=== PATIENT | male | born 1975 | race Caucasian/White ===

== ENCOUNTER 2018-04-30 07:54 | Emergency (ER) | payer OTHER ==
[2018-04-30 08:03] VITALS: BP 123/76; PULSE 91; TEMP 97.5; BMI 57.6
--- NOTE | 2018-04-30 08:20 | PDOC ---
History of Present Illness - General Chief Complaint: Pain Stated Complaint: GOUT RIGHT ELBOW Time Seen by Provider: 04/30/18 08:14 History Source: Patient Exam Limitations: No Limitations - History of Present Illness Initial Comments: CHIEF COMPLAINT: 42 y/o afebrile male with PMH gout c/o atraumatic right elbow pain that he believes is a gout attack. HISTORY OF PRESENT ILLNESS: The patient states that 2 days ago he had 2 glasses of wine. Yesterday he woke up with right elbow pain and he can't stand to even have a shirt sleeve on the elbow. He denies fall, trauma to elbow, fever, streaking, numbness/tingling of affected extremity. Vital signs on arrival are within normal limits REVIEW OF SYSTEMS: GENERAL/CONSTITUTIONAL: No fever/chills. No weakness. No weight change. MUSCULOSKELETAL: +right elbow pain. No neck or back pain. SKIN: No rash or easy bruising. NEUROLOGIC: No headache, vertigo, loss of consciousness, or loss of sensation. PHYSICAL EXAM: GENERAL: The patient is awake, alert, and fully oriented, in no acute distress. EXTREMITIES: Normal range of motion, no edema. Exquisite TTP of right elbow with light touch. No erythema or warmth to affected extremity. No deformities or streaking. NEUROLOGICAL: Normal speech, normal gait. CN II-XII grossly intact. SKIN: Warm, dry, normal turgor, no rashes or lesions noted. Past History - Past Medical History Home Medications: Ambulatory Orders Colchicine [Colcrys -] 0.6 mg PO BID #3 tablet 04/30/18 - Suicide/Smoking/Psychosocial Hx Smoking History: Former smoker Have you smoked in the past 12 months: No Information on smoking cessation initiated: No Hx Alcohol Use: No Drug/Substance Use Hx: No *Physical Exam - Vital Signs Last Vital Signs Temp Pulse Resp BP Pulse Ox 97.5 F L 91 H 20 123/76 99 04/30/18 07:57 04/30/18 07:57 04/30/18 07:57 04/30/18 07:57 04/30/18 07:57 Moderate Sedation - Procedure Monitoring Vital Signs: Procedure Monitoring Vital Signs Temperature 97.5 F L 04/30/18 07:57 Pulse Rate 91 H 04/30/18 07:57 Respiratory Rate 20 04/30/18 07:57 Blood Pressure 123/76 04/30/18 07:57 O2 Sat by Pulse Oximetry (%) 99 04/30/18 07:57 Medical Decision Making - Medical Decision Making A/P: 42 y/o male with gout attack to right elbow. Will send rx for colchicine. Instructed patient to return to the ER with any worsening or concerning symptoms. The patient verbalizes understanding of all instructions, has no further questions and is awaiting discharge. *DC/Admit/Observation/Transfer Diagnosis at time of Disposition: Gout attack Qualifiers: Gout site: elbow Gout etiology: unspecified cause Laterality: right Qualified Code(s): M10.9 - Gout, unspecified - Discharge Dispostion Disposition: HOME Condition at time of disposition: Good - Prescriptions Prescriptions: Colchicine [Colcrys -] 0.6 mg PO BID #3 tablet - Referrals - Patient Instructions Printed Discharge Instructions: DI for Gout Additional Instructions: Discharge Instructions: -A prescription for colchicine has been sent to your pharmacy -Return to the ER with any worsening or concerning symptoms - Post Discharge Activity
== END 2018-04-30 08:59 | disposition home or self-care (01) ==
LOC: JERFT 07:54
DX: M10.9 Gout, unspecified (principal)
CPT/HCPCS: 99281-25

== ENCOUNTER 2021-12-11 04:20 | Emergency (ER) | payer OTHER ==
[2021-12-11 04:35] VITALS: BP 171/72; PULSE 87; RESP 16; TEMP 98; BMI 59.1
[2021-12-11 05:35] LABS: BASO % 0.9 % (0-2.0); EOS % 4.9 % (0-4.5); HEMATOCRIT 43.4 % (35.4-49); HEMOGLOBIN 14.7 GM/dL (11.7-16.9); LYMPH % 23.8 % (8-40); MCH 28.5 pg (25.7-33.7); MCHC 33.9 g/dl (32.0-35.9); MEAN CELL VOLUME 84.1 fl (80-96); MEAN PLT VOLUME 8.5 fl (7.5-11.1); NEUT % 65.4 % (42.8-82.8); PLATELET COUNT 223 10^3/uL (134-434); RBC 5.16 M/mm3 (4.00-5.60); RDW 14.7 % (11.9-15.9); WHITE BLOOD COUNT 8.4 K/mm3 (4.0-10.0)
[2021-12-11 06:03] LABS: CALCIUM 8.8 mg/dL (8.5-10.1)
[2021-12-11 06:04] LABS: ALBUMIN 3.5 g/dl (3.4-5.0); BLOOD UREA NITROGEN 13.8 mg/dL (7-18); MAGNESIUM 2.1 mg/dL (1.8-2.4)
[2021-12-11 06:07] LABS: CREATININE 0.8 mg/dL (0.55-1.3); PHOSPHOROUS 3.5 mg/dL (2.5-4.9)
[2021-12-11 06:08] LABS: BILIRUBIN,TOTAL 0.4 mg/dL (0.2-1)
[2021-12-11 06:09] LABS: TOT PROT 7.6 g/dl (6.4-8.2)
== END 2021-12-11 06:59 | disposition home or self-care (01) ==
LOC: JER 04:20
DX: R20.2 Paresthesia of skin (principal)
CPT/HCPCS: 36415; 70450-TC; 72125-TC; 80053; 83735; 84100; 85025; 93005; 93010; 99285-25